=== PATIENT | male | born 1970 ===

== ENCOUNTER 2023-12-03 06:06 | Day surgery (SDC) | payer OTHER, SELFPAY ==
[2023-12-01 11:02] LABS: % Basophils 1.2 % (0-2); % Eosinophils 3.4 % (0-6); % Immature Granulocytes 1.2 % (0-0.5); % Lymphocytes 31.3 % (20.5-51.1); % Monocytes 6.6 % (1.7-9.3); % Neutrophils 56.3 % (42.2-75.2); Absolute Basophils 0.1 10^3/uL (0-0.2); Absolute Eosinophils 0.2 10^3/uL (0-0.7); Absolute Immature Granulocytes 0.1 10^3/uL (0-0.05); Absolute Lymphocytes 2.1 10^3/uL (1.2-3.4); Absolute Monocytes 0.5 10^3/uL (0.1-0.6); Absolute Neutrophils 3.8 10^3/uL (1.4-6.5); Hematocrit 48.2 % (39.0-52.0); Hemoglobin 16.2 g/dL (13.0-18.0); Mean Corp Hgb Conc. 33.6 g/dL (33.0-37.0); Mean Corpuscular Hgb 28.7 pg (27.0-31.0); Mean Corpuscular Volume 85.3 fL (80.0-94.0); Mean Platelet Volume 10.2 fL (7.4-10.4); Nucleated Red Blood Cells % 0 % (-); Platelet Count 238 10^3/uL (130-400); Red Blood Cell Count 5.65 10^6/uL (4.70-6.10); White Blood Cell Count 6.8 10^3/uL (4.8-10.8)
[2023-12-01 11:19] LABS: APTT 31.2 Sec (23.4-35.0)
[2023-12-01 11:49] LABS: Blood Urea Nitrogen 19 mg/dl (9-20); Calcium 9.5 mg/dl (8.4-10.2); Carbon Dioxide 27 mmol/L (22-30); Chloride 101 mmol/L (98-107); Glucose 109 mg/dl (70-99); Potassium 4.8 mmol/L (3.5-5.1); Sodium 138 mmol/L (135-145); eGFR > 60.00
[2023-12-03] VITALS (11 sets, daily range): BP systolic 115–153; BP diastolic 84–112; BMI 34.5
[2023-12-03 06:34] LABS: Glucose - Point of Care 122 mg/dl (70-99)
[2023-12-03] MEDS: NORMOSOL-R 1000 IV (06:34)
[2023-12-03] MEDS: DILAUDID 0.25 MG IV (10:22)
[2023-12-03] MEDS: Pyridium 200 MG PO (10:27)
[2023-12-03 10:42] LABS: Glucose - Point of Care 179 mg/dl (70-99)
[2023-12-03] MEDS: TORADOL 15 MG IV (11:26)
[2023-12-08 00:50] LABS: Stone Analysis Mass 13 mg
== END 2023-12-03 12:35 | disposition home or self-care (01) ==
LOC: SDS 06:06
PROVIDERS: ATTENDING PHYSICIAN Specialist; FAMILY PHYSICIAN Nurse Practitioner Family
DX: N20.2 Calculus of kidney with calculus of ureter (principal)
CPT/HCPCS: 50590; 52351; 52332; 36415; 74018; 76000; 80048; 82365; 82962; 85025; 85610; 85730; 93005; C1894; C2617